=== PATIENT | female | born 1990 | race African-American/Black ===

== ENCOUNTER 2016-10-04 15:05 | Emergency (ER) | payer SELFPAY ==
[~2016-10-04] VITALS: Ht 165.1 cm; Wt 56.2 kg
[~2016-10-04 15:05] MED LIST: BACTRIM-DS1 EA PO; CIPRO500 MG PO; CIPROFLOXACIN500 M2 ORAL; FLUCONAZOLE150 MG ORAL; IBUPROFEN600 MG PO; NKM; NORCO 5-325 TA1 EACH PO; UNOBMED
[2016-10-04] MEDS ORDERED: AMOXICILLIN500 MG ORAL (15:18)
[2016-10-04 15:20] VITALS: BP 102/70
--- NOTE | 2016-10-04 15:21 | Emergency Room Report ---
History of Present Illness General Chief Complaint: Sore Throat Present Illness HPI The patient is a 26 old female presenting with productive cough, sore throat, and subjective fevers which began 3 days prior. Pain is described as a 6/10 dull ache to the back of the throat and is worse with swallowing and cough. No radiating pain. Patient does admit to a sick contact who had similar symptoms one week prior. The patient denies any other symptoms including N, V, chills, hemoptysis, rash, dizziness, blurred vision Allergies: Coded Allergies: ASPIRIN (Verified Allergy, Mild, HIVES, 08/18/12) Patient History Past Medical History: see triage record Pertinent Family History: none Reviewed Nursing Documentation: PMH: Agreed, PSxH: Agreed Nursing Documentation-PMH Hx Asthma: Yes - CHILDHOOD Review of Systems All Other Systems: negative except mentioned in HPI Physical Exam Vital Signs Date Time Temp Pulse Resp B/P Pulse Ox O2 Delivery O2 Flow Rate FiO2 10/04/16 15:09 98.6 84 20 102/70 100 Room Air Sp02 EP Interpretation: reviewed, normal General Appearance: no apparent distress, alert, GCS 15, non-toxic Head: normocephalic, atraumatic Eyes: bilateral eye PERRL, bilateral eye normal inspection ENT: hearing grossly normal, normal voice, uvula midline, tonsillar swelling, pharyngeal erythema Neck: full range of motion, supple/symm/no masses Respiratory: chest non-tender, lungs clear, normal breath sounds, no wheezing, speaking full sentences Cardiovascular #1: regular rate, rhythm, no edema Genitourinary: normal inspection, no CVA tenderness Musculoskeletal: back normal, gait/station normal, normal range of motion, non- tender Neurologic: alert, oriented x3, responsive, motor strength/tone normal, sensory intact, normal gait, speech normal Psychiatric: judgement/insight normal, memory normal, mood/affect normal, no suicidal/homicidal ideation Skin: normal color, no rash, warm/dry, well hydrated Lymphatic: adenopathy Medical Decision Making PA Attestation Dr. Helm is my supervising physician. Patient management was discussed with my supervising physician Diagnostic Impression: Primary Impression: Pharyngitis, acute ER Course The patient is a 26 old female presenting with productive cough, sore throat, and subjective fevers Differential diagnosis include but not limited to pharyngitis, sinusitis, AOM, bronchitis, PNA Physical exam: Vitals within normal limits. Afebrile. No apparent distress HEENT exam: There is bilateral tonsillar edema, erythema. Uvula midline. Moist mucous membranes. There is bilateral cervical lymphadenopathy. Lungs are clear to auscultation bilaterally Skin is warm and dry. No rash + anterior cervical lymphad The patient will be discharged home with a prescription for amoxicillin and is given ER precautions. Patient will followup with primary care Last Vital Signs Date Time Temp Pulse Resp B/P Pulse Ox O2 Delivery O2 Flow Rate FiO2 10/04/16 15:09 98.6 84 20 102/70 100 Room Air Status: improved Disposition: HOME, SELF-CARE Condition: Improved Scripts Amoxicillin* (AMOXIL*) 500 Mg Capsule 500 MG ORAL Q12HR, #20 CAP Prov: IVAN MOLINA 10/04/16 Patient Instructions: Pharyngitis, Sore Throat Additional Instructions: I discussed my findings with the patient. All questions and concerns have been answered. Treatment and medication compliance have been addressed. I advised the patient that they need to follow up with PMD in 3-5 days. Return to ED if pain remains or worsens, cough worsens or remains, you notice blood in your sputum, you notice wheezing, you experience a fever, or if needed for any reason. Patient verbalized understanding of discharge instructions. IVAN MOLINA Oct 04, 2016 15:21
== END 2016-10-04 15:25 | disposition home or self-care (01) ==
LOC: EMR 15:16
DX: J02.9 Acute pharyngitis, unspecified (principal); Z88.6 Allergy status to analgesic agent; R05 Cough; J45.909 Unspecified asthma, uncomplicated
CPT/HCPCS: 99283

== ENCOUNTER 2016-11-05 07:23 | Emergency (ER) | payer SELFPAY ==
[~2016-11-05] VITALS: Ht 165.1 cm; Wt 58.1 kg
[~2016-11-05 07:23] MED LIST changes: +AMOXICILLIN500 MG ORAL
--- NOTE | 2016-11-05 07:54 | Emergency Room Report ---
History of Present Illness General Chief Complaint: Sore Throat Source: Patient Present Illness HPI The patient presents with sore throat and left ear pain that began last night. She felt some scratchiness in her throat for last couple days. She also has a fever this morning. She's not taking any medication. She tried to take peroxide and gargle with it but she's having pain when she swallows. She denies any cough. She's not at this time. Is no nausea vomiting diarrhea. She has muscle aches. The left side of her throat got sore. She is able to open her mouth and has no change in her voice. Pain 9/10, constant worse with swallowing, burning/sharp. 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 Last Menstrual Period: 10/05/16 Now: No Reviewed Nursing Documentation: PMH: Agreed, PSxH: Agreed Nursing Documentation-PMH Past Medical History: No Stated History Hx Asthma: Yes - CHILDHOOD Review of Systems All Other Systems: negative except mentioned in HPI Physical Exam Vital Signs Date Time Temp Pulse Resp B/P Pulse Ox O2 Delivery O2 Flow Rate FiO2 11/05/16 07:34 100.6 109 18 94/65 97 Room Air Sp02 EP Interpretation: reviewed, normal General Appearance: well appearing, no apparent distress Head: normocephalic, atraumatic Eyes: bilateral eye PERRL, bilateral eye normal inspection ENT: tonsillar swelling, pharyngeal erythema, tonsillar exudate, other - L TM with cerumen, no pinna tenderness, R normal Neck: full range of motion, supple Respiratory: lungs clear, normal breath sounds, no respiratory distress, speaking full sentences Cardiovascular #1: regular rate, rhythm Cardiovascular #2: 2+ radial (R) Gastrointestinal: normal inspection Musculoskeletal: no calf tenderness Neurologic: alert, normal gait, grossly normal Psychiatric: mood/affect normal Skin: no rash Medical Decision Making Diagnostic Impression: Primary Impression: Pharyngitis, acute Qualified Codes: J02.9 - Acute pharyngitis, unspecified Additional Impression: Otitis media Qualified Codes: H66.002 - Acute suppurative otitis media without spontaneous rupture of ear drum, left ear ER Course Patient presents with pharyngitis fever and left ear pain. Differential includes strep, viral and otitis media amongst others. She does have a peritonsillar abscess at the moment. She will be with Decadron, Augmentin and Tylenol. The patient is feeling ill but not looking toxic. The patient is stable for outpatient observation and treatment. Last Vital Signs Date Time Temp Pulse Resp B/P Pulse Ox O2 Delivery O2 Flow Rate FiO2 11/05/16 07:34 100.6 109 18 94/65 97 Room Air Scripts Acetaminophen (Tylenol) 325 Mg Tablet 650 MG ORAL Q6H Y for Prn Pain/Headache/Temp > 101, #30 TAB 0 Refills Prov: Ole Ordonez M.D. 11/05/16 Lidocaine HCl (Lidocaine HCl Viscous) 100 Ml Solution 10 ML PO Q6HR Y for throat pain, #60 ML Prov: Ole Ordonez M.D. 11/05/16 Amoxicillin/Potassium Clav 500-125 Tablet* (AUGMENTIN 500-125 TABLET*) 1 Each Tablet 1 TAB ORAL THREE TIMES A DAY, #21 TAB Prov: Ole Ordonez M.D. 11/05/16 Referrals: NOT CHOSEN MARK/,REFERRING (PCP) Ole Ordonez M.D. Nov 05, 2016 07:54
[2016-11-05] MEDS ORDERED: AUGMENTIN 500-1 EACH ORAL (07:59)
[2016-11-05] MEDS ORDERED: TYLENOL325 MG ORAL (07:59)
[2016-11-05] MEDS ORDERED: LIDOCAINE VISCO20 ML PO (07:59)
[2016-11-05 08:04] VITALS: BP 100/76
== END 2016-11-05 08:10 | disposition home or self-care (01) ==
LOC: EMR 07:51
DX: J02.9 Acute pharyngitis, unspecified (principal); H66.002 Acute suppurative otitis media without spontaneous rupture of ear drum, left ear; Z88.6 Allergy status to analgesic agent; R50.9 Fever, unspecified
CPT/HCPCS: 99284; J8540

== ENCOUNTER 2018-06-22 18:58 | Emergency (ER) | payer OTHER ==
[~2018-06-22] VITALS: Ht 165.1 cm; Wt 61.2 kg
[~2018-06-22 18:58] MED LIST changes: +AUGMENTIN 500-1 EACH ORAL; +LIDOCAINE VISCO20 ML PO; +TYLENOL325 MG ORAL
[2018-06-22] MEDS ORDERED: NKM (19:15)
[2018-06-22 19:23] VITALS: BP 116/69
[2018-06-22] MEDS ORDERED: Tetracaine 0.5% Opth 4ml Soln RIGHT EYE ONE (20:00)
[2018-06-22] MEDS ORDERED: Fluorescein Strips RIGHT EYE ONE (20:00)
[2018-06-22] MEDS ORDERED: ERYTHROMYCIN3.5 GM RIGHT EYE (20:43)
[2018-06-22] MEDS ORDERED: HYDROCORTISONE30 G2 TP (20:43)
--- NOTE | 2018-06-22 20:44 | Emergency Room Report ---
History of Present Illness General Chief Complaint: Eye Problems Source: Patient Present Illness HPI 28-year-old female patient presents the ER with multiple complaints. Patient complaining of red eye for the past 2 days. Reports extremely pruritic. States that she noted crusting that was white and yellow green. Patient denies wearing contact lenses or glasses. Patient states that she went to the pharmacy and was advised on eyedrops to use however states that they did not improve her symptoms and she feels her symptoms have been getting worse. Denies pain with eye movement. Denies surrounding erythema or edema. Reports that she rubbed her eye due to itchiness and feels like some of the crust got into her eye. Reports tearing. Denies vision loss or changes. Patient's also complaining of rash around her mouth and upper lip. Reports lips are dry and cracked. Patient reports a history of eczema. States symptoms have been present for the past month and have however states history of similar symptoms for the past several years. States that she has not seen a splicing supervisor recently. States that she has "tried every cream under the sun". Patient requesting new treatment here in the ER. Allergies: Coded Allergies: ASPIRIN (Verified Allergy, Mild, HIVES, 08/18/12) Patient History Past Medical History: see triage record Reviewed Nursing Documentation: PMH: Agreed; PSxH: Agreed Nursing Documentation-PMH Past Medical History: No History, Except For Hx Asthma: Yes - CHILDHOOD Review of Systems All Other Systems: negative except mentioned in HPI Physical Exam Vital Signs Date Time Temp Pulse Resp B/P (MAP) Pulse Ox O2 Delivery O2 Flow Rate FiO2 06/22/18 19:08 98.4 81 17 116/69 98 Room Air Sp02 EP Interpretation: reviewed, normal General Appearance: well appearing, no apparent distress, alert, GCS 15, non- toxic Head: normocephalic, atraumatic Eyes: right eye Scleral Injection, right eye other - crusting noted; bilateral eye normal inspection, bilateral eye PERRL, bilateral eye EOMI ENT: hearing grossly normal, normal pharynx, no angioedema, normal voice, uvula midline, moist mucus membranes Neck: full range of motion Respiratory: lungs clear, normal breath sounds, no rhonchi, no respiratory distress, no accessory muscle use, no wheezing, speaking full sentences Cardiovascular #1: regular rate, rhythm, no edema Musculoskeletal: back normal, digits/nails normal, gait/station normal, normal range of motion, non-tender Neurologic: alert, oriented x3, responsive, motor strength/tone normal, sensory intact Psychiatric: mood/affect normal Skin: other - Dry cracked eczematous skin surrounding mouth, no surrounding erythema or edema Medical Decision Making PA Attestation Dr. Ordonez is my supervising Physician whom patient management has been discussed with. Diagnostic Impression: Primary Impression: Acute conjunctivitis Additional Impression: Eczema ER Course Pt. presents to the ED c/o right eye redness and crusting and dry cracked skin of mouth and upper lip. Ddx considered but are not limited to allergic conjunctivitis, viral conjunctivitis, bacterial conjunctivitis, periorbital cellulitis, URI, sinusitis , keratitis, glaucoma, atopic dermatitis, scabies, shingles, hives, urticaria, angiodema, allergic reaction, impetigo. No reduction in VA, no cilliary flush, no photophobia, no FB sensation, no corneal opacity, low suspicion for keratitis, iritis. No DELONG, no vomiting, no fixed pupil, no reduction of VA, no ciliary flush, low suspicion for angle closure glaucoma. See nurses note for visual acuity. Vital signs: are WNL, pt. is afebrile Patient has no signs of surrounding cellulitis, no pain with eye movement, does not require imaging at this time. ER COURSE: Fluorescein stain of right eye shows no uptake, low suspicion for abrasion, no rust ring, negative Den sign, no dendritic lesions. Signs and symptoms consistent with conjunctivitis. Due to initial failed outpatient treatment worsening of symptoms, will provide patient with denies any medication at discharge. F/u with ophthalmology. F/u with cold molding press operator. May return to school after 24 hours of treatment completed. Physical exam shows dry cracked skin consistent with eczema of surrounding lips. Will provide patient with hydrocortisone cream. Informed patient to keep lips well moisturized and use Chapstick. Informed patient she needs follow -up with dermatology due to chronicity of symptoms. No surrounding erythema or edema, low suspicion for cellulitis. Patient does not require antibiotics at this time. ER precautions given. DISCHARGE: Rx provided for Erythromycin ointment. Informed patient to apply to both eyes. Rx provided for hydrocortisone At this time pt. is stable for d/c to home. Patient is resting comfortably, in no acute distress, nontoxic appearing, talking without difficulty. Will provide printed patient care instructions, and any necessary prescriptions. Patient instructed to follow up with metal cleaner and discuss further follow up with ophthalmology and cold molding press operator and dermatology. Care plan and follow up instructions have been discussed with the patient prior to discharge. Patient questions asked and answered. Patient reports understanding and agreement to treatment plan. ER precautions given. Patient instructed to return to ER immediately for any new or worsening of symptoms including but not limited to vision loss, fever, changes in vision. - Please note that this Emergency Department Report was dictated using [employer] unix administrator technology software, occasionally this can lead to erroneous entry secondary to interpretation by the dictation equipment. Last Vital Signs Date Time Temp Pulse Resp B/P (MAP) Pulse Ox O2 Delivery O2 Flow Rate FiO2 06/22/18 19:23 98.4 80 17 116/69 98 Room Air Disposition: HOME, SELF-CARE Condition: Stable Scripts Erythromycin Base (ERYTHROMYCIN*) 3.5 Gm Oint...g. 1 APPLIC RIGHT EYE TID for 7 Days, #3.5 GM 0 Refills Prov: Aditya Kaufman 06/22/18 Hydrocortisone (Hydrocortisone Cream 2.5%) Y Cream.appl 1 APPLIC TP BID, #28 GM Prov: Aditya Kaufman 06/22/18 Referrals: MARK POWELL,REFERRING (PCP) Patient Instructions: Bacterial Conjunctivitis, [id number], Eczema, Viral Conjunctivitis Additional Instructions: Followup with primary care provider in 3 -5 days. Discussed referral to ophthalmology and cold molding press operator. Use ChapStick. Keep skin well hydrated. Request referral to dermatology as needed. SE Benadryl drowsiness, do not take prior to drinking, driving, operating heavy machinery. Take Claritin during the day and Benadryl at night for itching symptoms. Patient questions asked and answered. ER precautions given, patient instructed to return to ER immediately for any new or worsening of symptoms. [facility] Aditya Kaufman Jun 22, 2018 20:44
[2018-06-22 20:51] VITALS: BP 116/69
== END 2018-06-22 20:53 | disposition home or self-care (01) ==
LOC: EMR 19:36
DX: H10.31 Unspecified acute conjunctivitis, right eye (principal); L30.9 Dermatitis, unspecified; Z88.6 Allergy status to analgesic agent
CPT/HCPCS: 99283